=== PATIENT | female | born 1950 | race Two or more races ===

== ENCOUNTER → 2025-05-09 | Outpatient (CLI) | payer OTHER, SELFPAY ==
--- NOTE | 2025-05-09 12:40 | XR_ITS ---
Examination: Bone densitometry Date and time of exam: May 09, 2025, 1305 hours INDICATIONS: Menopause age 46, diabetic, family history, mother hip fracture Technique: Lumbar spine and hip total bone mineralization values of an calculated. Peak reference and age match control results have been displayed. Findings: Lumbar spine total bone mineralization is 0.998 gm/cm2. This is 0.4 standard deviations below peak reference. This is 2.1 standard deviations above age-matched controls. Hip total bone mineralization is 0.834 gm/cm2 This is 1.0 standard deviations below peak reference. This is 1.0 standard deviations above age-matched controls Impression: There is normal mineralization based on lumbar spine measurements. There is osteopenia based on hip measurements Lumbar mineralization is decreased 0.3% compared with April 10, 2023 Hip mineralization is decreased 3.6% compared with April 10, 2023
== END | disposition home or self-care (01) ==
PROVIDERS: PCP Family Medicine; Referring Provider Family Medicine; Visit Provider Family Medicine
DX: M85.89 Other specified disorders of bone density and structure, multiple sites (principal)
CPT/HCPCS: 77080